=== PATIENT | female | born 1980 | race African-American/Black ===

== ENCOUNTER 2017-03-06 13:19 | Emergency (ER) | payer OTHER ==
[2017-03-06 14:00] LABS: INFLUENZA A PATIENT NEGATIVE (NEGATIVE); INFLUENZA B PATIENT NEGATIVE (NEGATIVE); OBC FLU VALID
== END 2017-03-06 14:30 ==
LOC: ER 13:19
DX: Z20.828 Contact with and (suspected) exposure to other viral communicable diseases (principal); M79.1 Myalgia; R50.9 Fever, unspecified; Z88.5 Allergy status to narcotic agent
CPT/HCPCS: 87804; 87804-59; 99284

== ENCOUNTER 2017-04-19 15:04 | Emergency (ER) | payer OTHER ==
[2017-04-19 15:31] LABS: URINE HCG POC HCG NEGATIVE (Negative)
[2017-04-19] MEDS ORDERED: MORPHINE SULFATE 4 MG/ML DISP.SYRIN. IV/SQ (15:45)
[2017-04-19 15:53] LABS: BILIRUBIN,URINE SMALL (NEG); CLARITY,URINE CLOUDY; COLOR,URINE AMBER; GLUCOSE,URINE NEGATIVE (NEG); NITRITE,URINE NEGATIVE (NEG); PROTEIN,URINE NEGATIVE (NEG-TRACE)
[2017-04-19] MEDS: IV NORMAL SALINE 1000ML BAG 1,000 ML IV ×2 (15:55→16:45)
[2017-04-19] MEDS: ONDANSETRON PF 4 MG/2 ML VIAL. IV (16:01)
[2017-04-19 16:05] LABS: ADD MAN DIFF? NO
[2017-04-19 16:07] LABS: BASO % 0 % (0-3); EOS % 0 % (0-3); HEMATOCRIT 37.6 % (36.0-47.0); HEMOGLOBIN 13.3 g/dL (12.0-15.5); LYMPH # 2.5 x10^3/uL (1.0-4.8); LYMPH % 35 % (24-48); MEAN CORPUSCULAR HEMOGLOBIN 32 pg (25-35); MEAN CORPUSCULAR HGB CONC 35 g/dL (31-37); MEAN CORPUSCULAR VOLUME 90 fL (79-100); MONO # 0.5 x10^3/uL (0.0-1.1); MONO % 7 % (0-9); NEUT % 57 % (31-73); PLATELET COUNT 293 x10^3/uL (140-400); RED BLOOD COUNT 4.16 x10^6/uL (3.50-5.40); RED CELL DISTRIBUTION WIDTH 13.4 % (11.5-14.5)
[2017-04-19 16:08] LABS: BARBITURATES NEG (NEG); BENZODIAZEPINES NEG (NEG); CANNABINOIDS POS (NEG); COCAINE NEG (NEG); METHADONE NEG (NEG); OPIATES NEG (NEG); PHENCYCLIDINE NEG (NEG)
[2017-04-19 16:09] LABS: AMPHETAMINE/METHAMPHETAMINE NEG (NEG); ETHANOL, URINE NEG (NEG)
[2017-04-19 16:18] LABS: PARTIAL THROMBOPLASTIN TIME 30 SEC (24-38); PROTHROMBIN TIME PATIENT 12.5 SEC (11.7-14.0)
[2017-04-19 16:19] LABS: BACTERIA,URINE MODERATE /HPF (0-FEW); RBC,URINE 0 /HPF (0-2); SQUAMOUS EPITHELIAL CELL,UR MANY /LPF
[2017-04-19 16:27] LABS: ALBUMIN 3.5 g/dL (3.4-5.0); ALK PHOS 50 U/L (46-116); ALT (SGPT) 48 U/L (14-59); ANION GAP 10 (6-14); AST (SGOT) 32 U/L (15-37); BLOOD UREA NITROGEN 11 mg/dL (7-20); CALCIUM 8.9 mg/dL (8.5-10.1); CARBON DIOXIDE 23 mmol/L (21-32); CHLORIDE 106 mmol/L (98-107); DIRECT BILIRUBIN 0.2 mg/dL (0.0-0.2); GLUCOSE 88 mg/dL (70-99); LIPASE 138 U/L (73-393); POTASSIUM 3.5 mmol/L (3.5-5.1); SODIUM 139 mmol/L (136-145); TOTAL BILIRUBIN 1.1 mg/dL (0.2-1.0); TOTAL PROTEIN 7.1 g/dL (6.4-8.2)
[2017-04-19 16:31] LABS: GFR 76.8
[2017-04-19 16:36] LABS: CKMB MASS < 0.5 ng/mL (0.0-3.6); CREATINE KINASE 74 U/L (26-192)
== END 2017-04-19 16:58 | disposition home or self-care (01) ==
LOC: ER 15:04
DX: A08.4 Viral intestinal infection, unspecified (principal); E86.0 Dehydration; E80.6 Other disorders of bilirubin metabolism; Z88.5 Allergy status to narcotic agent; F17.210 Nicotine dependence, cigarettes, uncomplicated
CPT/HCPCS: 36415; 80048; 80076; 80307; 81001; 81025; 82553; 83690; 85025; 85610; 85730; 87086; 96361; 96374; 99284-25; J2405; J7030

== ENCOUNTER 2019-02-03 12:46 | Emergency (ER) | payer OTHER ==
[~2019-02-03] VITALS: Ht 154.9 cm; Wt 51.3 kg
[~2019-02-03 12:46] MED LIST: CYCL5TAB PO; ONDA4TAB10 SL; OSEL75CA PO
[2019-02-03 14:29] VITALS: BP 130/87
[2019-02-03 15:24] LABS: BILIRUBIN,URINE NEGATIVE (NEG); CLARITY,URINE CLEAR; COLOR,URINE YELLOW; NITRITE,URINE NEGATIVE (NEG); PH,URINE 7.5; PROTEIN,URINE NEGATIVE (NEG-TRACE)
[2019-02-03 15:30] LABS: RBC,URINE RARE /HPF (0-2); WBC,URINE 0 /HPF (0-4)
[2019-02-03 15:31] LABS: BACTERIA,URINE FEW /HPF (0-FEW); SQUAMOUS EPITHELIAL CELL,UR OCC /LPF
--- NOTE | 2019-02-03 16:46 | RAD ---
EXAM: Pelvic sonogram. HISTORY: Pain. TECHNIQUE: Transabdominal and transvaginal sonographic imaging of the pelvis was performed. COMPARISON: None. FINDINGS: The uterus measures 6.7 x 3.2 x 4.5 cm. The endometrial stripe measures 1.4 mm in thickness. There is trace fluid within the endometrial cavity. There is trace fluid within the and endocervical canal. The ovaries are normal in size and demonstrate normal blood flow. There is a 1.8 cm dominant right ovarian follicle. There is no pelvic free fluid. IMPRESSION: 1. Thin endometrium and trace fluid within the endometrial cavity. There is also trace fluid within the endocervical canal. 2. 1.8 cm physiologic dominant right ovarian follicle. Electronically signed by: Radha Clemons MD (02/03/2019 4:44 PM) [facility]
--- NOTE | 2019-02-03 16:57 | PHYS DOC ---
Past Medical History Past Medical History: No Pertinent History, Ovarian Cyst (GISELALALYJOSE JUAN Giordano APRN) Past Surgical History: Additional Past Surgical Histo: exploratory lap (CHADJOSE JUAN Giordano APRN) Alcohol Use: Occasionally Drug Use: None (DELGADOJOSE JUAN APRN) Adult General Chief Complaint Chief Complaint: PELVIC PAIN HPI HPI Patient is a 38 year old Female who presents to the ED today complaining of mild intermittent bilateral pelvic pain worse on the left side that began 2 days ago. Patient is also complaining of vaginal discharge. She states she's had unprotected sex but does not believe she has an STD. (DELGADOJOSE JUAN HERNANDEZ) Review of Systems Review of Systems Constitutional: Denies fever or chills [] Eyes: Denies change in visual acuity, redness, or eye pain [] HENT: Denies nasal congestion or sore throat [] Respiratory: Denies cough or shortness of breath [] Cardiovascular: No additional information not addressed in HPI [] GI: Reports pelvic pain.Denies, nausea, vomiting, bloody stools or diarrhea [] : Denies dysuria or hematuria [] Musculoskeletal: Denies back pain or joint pain [] Integument: Denies rash or skin lesions [] Neurologic: Denies headache, focal weakness or sensory changes [] Endocrine: Denies polyuria or polydipsia [] All other systems were reviewed and found to be within normal limits, except as documented in this note. (JOSE JUAN NATARAJAN DAVID) Allergies Allergies Allergies Coded Allergies Type Severity Reaction Last Updated Verified hydrocodone Allergy Intermediate rash 04/19/17 No oxycodone Allergy Intermediate rash 04/19/17 No (ENRICO MAK DO) Physical Exam Physical Exam Constitutional: Well developed, well nourished, no acute distress, non-toxic appearance. [] HENT: Normocephalic, atraumatic, bilateral external ears normal, oropharynx moist, no oral exudates, nose normal. [] Eyes: PERRLA, EOMI, conjunctiva normal, no discharge. [] Neck: Normal range of motion, no tenderness, supple, no stridor. [] Cardiovascular:Heart rate regular rhythm, no murmur [] Lungs & Thorax: Bilateral breath sounds clear to auscultation [] Abdomen: Bowel sounds normal, soft, no tenderness, no masses, no pulsatile ma sses. [] Pelvic exam external pelvic appears normal, cervix is visualized, thick white discharge noted in the cervical OS, no CMT, no adnexal tenderness. Skin: Warm, dry, no erythema, no rash. [] Back: No tenderness, no CVA tenderness. [] Extremities: No tenderness, no cyanosis, no clubbing, ROM intact, no edema. [] Neurologic: Alert and oriented X 3, normal motor function, normal sensory function, no focal deficits noted. [] Psychologic: Affect normal, judgement normal, mood normal. [] (JOSE JUAN NATARAJAN APRN) Current Patient Data Vital Signs Vital Signs Date Time Temp Pulse Resp B/P (MAP) Pulse Ox O2 Delivery O2 Flow Rate FiO2 02/03/19 14:29 98.0 67 16 130/87 (101) 99 Room Air 98.0 (ENRICO MAK DO) Lab Values Laboratory Tests Test 02/03/19 14:31 02/03/19 14:38 POC Urine HCG, Qualitative Hcg negative (Negative) Urine Collection Type Unknown Urine Color Yellow Urine Clarity Clear Urine pH 7.5 Urine Specific Gratz 1.020 Urine Protein Negative mg/dL (NEG-TRACE) Urine Glucose (UA) Negative mg/dL (NEG) Urine Ketones (Stick) Negative mg/dL (NEG) Urine Blood Negative (NEG) Urine Nitrite Negative (NEG) Urine Bilirubin Negative (NEG) Urine Urobilinogen Dipstick 1.0 mg/dL (0.2 mg/dL) Urine Leukocyte Esterase Negative (NEG) Urine RBC Rare /HPF (0-2) Urine WBC 0 /HPF (0-4) Urine Squamous Epithelial Cells Occ /LPF Urine Bacteria Few /HPF (0-FEW) Urine Mucus Slight /LPF Microbiology 02/03/19 Wet Prep - Final, Complete (ENRICO MAK DO) EKG EKG [] (JOSE JUAN NATARAJAN APRN) Radiology/Procedures Radiology/Procedures []PROCEDURE: PELVIS W/TV EXAM: Pelvic sonogram. HISTORY: Pain. TECHNIQUE: Transabdominal and transvaginal sonographic imaging of the pelvis was performed. COMPARISON: None. FINDINGS: The uterus measures 6.7 x 3.2 x 4.5 cm. The endometrial stripe measures 1.4 mm in thickness. There is trace fluid within the endometrial cavity. There is trace fluid within the and endocervical canal. The ovaries are normal in size and demonstrate normal blood flow. There is a 1.8 cm dominant right ovarian follicle. There is no pelvic free fluid. IMPRESSION: 1. Thin endometrium and trace fluid within the endometrial cavity. There is also trace fluid within the endocervical canal. 2. 1.8 cm physiologic dominant right ovarian follicle. Electronically signed by: Radha Live MD (02/03/2019 4:44 PM) [place] [id number] DICTATED and SIGNED BY: RADHA LIVE MD DATE: 02/03/19 4703 (JOSE JUAN NATARAJAN APRN) Course & Med Decision Making Course & Med Decision Making Pertinent Labs and Imaging studies reviewed. (See chart for details) This is a 38-year-old female patient presented to the ED today with pelvic pain that began 2 days ago, negative urine hCG, UA negative for infection. Wet prep positive for BV. Prescription for Flagyl provided. pelvic ultrasound noted for thin endometrium and trace fluid within the endometrial cavity. There is also trace fluid within the endocervical canal. 1.8 cm physiologic dominant right ovarian follicle. Follow-up with [facility]. (JOSE JUAN NATARAJAN APRN) Dragon Disclaimer Dragon Disclaimer This electronic medical record was generated, in whole or in part, using a voice recognition dictation system. (JOSE JUAN NATARAJAN APRN) Departure Departure Impression: Primary Impression: Bacterial vaginosis Disposition: 01 HOME, SELF-CARE Condition: STABLE Referrals: NO PCP (PCP) ENRICO MOREL MD follow up in 1-2 weeks Patient Instructions: Bacterial Vaginosis, [id number] Additional Instructions: You were evaluated in the medical for pelvic pain.You have bacterial vaginosis, complete your antibiotics. Take Tylenol/Motrin for pain or fever. Follow-up with your [facility] in the next 1-2 weeks. Scripts Metronidazole (FLAGYL) 500 Mg Tablet 1 TAB PO BID, #14 TAB Prov: JOSE JUAN NATARAJAN APRN 02/03/19 Attending Signature Attending Signature I have reviewed the PA/TRIMMER MEAT's note and plan of care. I was available for consultation as needed during the patient's visit in the emergency department. I agree with the clinical impression, plan, and disposition. (ENRICO MAK DO) JOSE JUAN NATARAJAN APRN Feb 03, 2019 16:57 ENRICO MAK DO Feb 04, 2019 06:21
[2019-02-03] MEDS ORDERED: METR500T PO (16:58)
[2019-02-04 19:09] LABS: GC PROBE Negative (Negative)
== END 2019-02-03 17:00 | disposition home or self-care (01) ==
LOC: ER 12:46
DX: N76.0 Acute vaginitis (principal); B96.89 Other specified bacterial agents as the cause of diseases classified elsewhere; Z88.5 Allergy status to narcotic agent
CPT/HCPCS: 76830; 76856; 81001; 81025; 87491; 87591; 99285; Q0111

== ENCOUNTER 2019-03-13 09:52 | Emergency (ER) | payer OTHER ==
[~2019-03-13] VITALS: Ht 154.9 cm; Wt 54.5 kg
[~2019-03-13 09:52] MED LIST changes: +METR500T PO
[2019-03-13 10:28] VITALS: BP 118/70
[2019-03-13] MEDS ORDERED: NAPR-695 PO (11:00)
--- NOTE | 2019-03-13 11:00 | PHYS DOC ---
Past Medical History Past Medical History: No Pertinent History, Ovarian Cyst Past Surgical History: Additional Past Surgical Histo: exploratory lap Smoking Status: Current Every Day Smoker Alcohol Use: Occasionally Drug Use: None Adult General Chief Complaint Chief Complaint: KNEE INJURY HPI HPI Patient is a 38 year old AA female who presents to the emergency department with complaints of pain behind her right knee with movement and weightbearing that began yesterday evening. She denies any known injury. Patient states that she was [place] around [place] the [place]. She is not used this much activity. Patient denies any swelling, redness, warmth, or palpable knot to the affected knee. She rates her pain a 2 out of 10 at rest, she states that the pain increases to a 10 with movement and stretching. She states that she has tried applying ice to the area with some relief of discomfort. She denies any numbness, tingling, or weakness of the affected somebody. All other ROS is neg unless otherwise noted in HPI. Review of Systems Review of Systems See Above Allergies Allergies Allergies Coded Allergies Type Severity Reaction Last Updated Verified hydrocodone Allergy Intermediate rash 04/19/17 No oxycodone Allergy Intermediate rash 04/19/17 No Physical Exam Physical Exam See Above Constitutional: Well developed, well nourished, no acute distress, non-toxic appearance. [] HENT: Normocephalic, atraumatic, bilateral external ears normal, nose normal. [] Eyes: PERRLA, EOMI, conjunctiva normal, no discharge. [] Neck: Normal range of motion, no stridor. [] Cardiovascular:Heart rate regular rhythm, Lungs & Thorax: Respirations even and unlabored, no retractions, no respiratory distress Skin: Warm, dry, no erythema, no rash. [] Extremities: R knee: No bony tenderness, no cyanosis, no bruising, no clubbing, ROM intact, no edema, negative anterior and posterior drawer testing. [] Neurologic: Alert and oriented X 3, no focal deficits noted. [] Psychologic: Affect normal, judgement normal, mood normal. [] Current Patient Data Vital Signs Vital Signs Date Time Temp Pulse Resp B/P (MAP) Pulse Ox O2 Delivery O2 Flow Rate FiO2 03/13/19 10:28 97.9 97 18 118/70 (86) 98 Room Air 97.9 EKG EKG [] Radiology/Procedures Radiology/Procedures [] Course & Med Decision Making Course & Med Decision Making Pertinent Labs and Imaging studies reviewed. (See chart for details) [] Dragon Disclaimer Dragon Disclaimer This electronic medical record was generated, in whole or in part, using a voice recognition dictation system. Departure Departure Impression: Primary Impression: Posterior right knee pain Disposition: HOME, SELF-CARE Condition: STABLE Referrals: NO PCP (PCP) GEOVANNY KEBEDE MD Patient Instructions: Knee Pain, [id number] Additional Instructions: Fill prescription(s) and use as directed. Recommend application of ice, elevation, and rest of affected extremity. Recommend a compression knee sleeve as needed for comfort. Follow-up with Dr. Kebede if symptoms persist. Return to the ER if your symptoms worsen. Scripts Naproxen (NAPROXEN) 375 Mg Tablet 1 TAB PO BID for 10 Days, #20 TAB 0 Refills Prov: SAQIB MOYA APRN 03/13/19 SAQIB MOYA APRN Mar 13, 2019 11:00
== END 2019-03-13 11:04 | disposition home or self-care (01) ==
LOC: ER 09:52
DX: M25.561 Pain in right knee (principal); F17.200 Nicotine dependence, unspecified, uncomplicated; Z88.5 Allergy status to narcotic agent
CPT/HCPCS: 99282